=== PATIENT | male | born 1990 | race African-American/Black ===

== ENCOUNTER 2018-11-17 00:43 | Inpatient (IN) | payer OTHER ==
[~2018-11-17] VITALS: Ht 180.3 cm; Wt 96.4 kg
[2018-11-17 01:38] LABS: BASO % 0.3 % (0.0-1.0); EOS # 0.1 10^3/uL (0.0-0.50); EOS % 2.4 % (0.0-3.0); HEMATOCRIT 46.9 % (42.0-52.0); HEMOGLOBIN 15.1 g/dl (13.5-17.5); LYMPH # 2.9 10^3/uL (1.5-6.5); LYMPH % 49.4 % (24.0-44.0); MEAN CORPUSCULAR HEMOGLOBIN 28.1 pg (27.0-33.0); MEAN CORPUSCULAR HGB CONC 32.2 g/dl (32.0-36.5); MEAN CORPUSCULAR VOLUME 87.2 fl (80.0-96.0); MONO # 0.5 10^3/uL (0.0-0.8); MONO % 8.3 % (0.0-5.0); NEUTROPHILS # 2.3 10^3/uL (1.8-7.7); NEUTROPHILS % 39.4 % (36.0-66.0); PLATELET COUNT, AUTOMATED 252 10^3/uL (150-450); RED BLOOD COUNT 5.38 10^6/uL (4.30-6.10); WHITE BLOOD COUNT 5.9 10^3/uL (4.0-10.0)
[2018-11-17] MEDS ORDERED: NS 1,000 ML IV ONE (01:45)
[2018-11-17 02:23] LABS: ACETAMINOPHEN LEVEL < 2.0 UG/ML (10.0-30.0); ALBUMIN 4.6 GM/DL (3.2-5.2); ALT/SGPT 78 U/L (12-78); BILIRUBIN,DIRECT < 0.1 MG/DL (0.0-0.2); BILIRUBIN,TOTAL 0.2 MG/DL (0.2-1.0); BLOOD UREA NITROGEN 13 MG/DL (7-18); CALCIUM LEVEL 9.3 MG/DL (8.5-10.1); CARBON DIOXIDE LEVEL 30 MEQ/L (21-32); CHLORIDE LEVEL 105 MEQ/L (98-107); CPK CREATINE PHOSPHOKINASE 223 U/L (39-308); ETHYL ALCOHOL (ETHANOL) 0.005 % (0.000-0.010); GLOMERULAR FILTRATION RATE > 60.0 (>60); GLUCOSE, FASTING 102 MG/DL (70-100); POTASSIUM SERUM 4.2 MEQ/L (3.5-5.1); SALICYLATE LEVEL < 1.7 MG/DL (5.0-30.0); SODIUM LEVEL 141 MEQ/L (136-145); TOTAL PROTEIN 7.8 GM/DL (6.4-8.2)
[2018-11-17 03:02] LABS: AMPHETAMINES LEVEL URINE NEGATIVE (NEGATIVE); BARBITURATES URINE NEGATIVE (NEGATIVE); BENZODIAZEPINES URINE NEGATIVE (NEGATIVE); CANNABINOIDS URINE NEGATIVE (NEGATIVE); COCAINE METABOLITE URINE NEGATIVE (NEGATIVE); METHADONE URINE NEGATIVE (NEGATIVE); OPIATES URINE NEGATIVE (NEGATIVE); PHENCYCLIDINE URINE NEGATIVE (NEGATIVE)
--- NOTE | 2018-11-17 07:20 | ECGEPIP ---
[facility] - ED Test Date: 2018-11-17 Pat Name: MISTI GIFFORD Department: Room: - Gender: Male Rehab Trainer: PK : 1990 Requested By: ALEIDA Hook Order Number: [id number] Reading MD: Lonny Simmons Measurements Intervals [place] Rate: 84 P: 30 [place]: 179 QRS: 2 QRSD: 95 T: 5 QT: 359 QTc: 425 Interpretive Statements SINUS RHYTHM VOLTAGE CRITERIA FOR [facility] NONSPECIFIC T-WAVE ABNORMALITY NO PRIORS FOR COMPARISON Electronically Signed on 11-17-2018 7:19:55 EDT by Lonny Simmons
[2018-11-17] MEDS ORDERED: BENA25CA4 PO (08:00)
[2018-11-17] MEDS ORDERED: MOM 30ML SUSPENSION UDC PO PRN (14:15)
[2018-11-17] MEDS ORDERED: ACETAMINOPHEN TAB 650MG DOSE (2X325MG) PO PRN (14:15)
[2018-11-17] MEDS ORDERED: traZODone 100 MG TAB PO PRN (14:15)
[2018-11-17] MEDS ORDERED: MAALOX 30 ML SUSP *UDC PO PRN (14:15)
[2018-11-17 14:48] VITALS: BP 138/83
[2018-11-17] MEDS: diphenhydrAMINE 50 MG CAP PO SCH (21:00)
[2018-11-18 06:00] VITALS: BP 137/66
[2018-11-18 18:03] VITALS: BP 135/61
[2018-11-18] MEDS: diphenhydrAMINE 50 MG CAP PO SCH (20:13)
[2018-11-18] MEDS ORDERED: traZODone 100 MG TAB PO SCH (21:00)
[2018-11-18] MEDS: LORazepam 1 MG TAB PO PRN (21:51)
[2018-11-19 06:52] VITALS: BP 109/61
--- NOTE | 2018-11-19 09:15 | MHHPE ---
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 The patient just got this Spring. His is living in [place] and was supposed to be moving here yesterday when her plans fell through. The patient's called EMS for a possible suicide attempt by the patient. The patient has a history of chronic insomnia since childhood. He takes high amounts of over the counter Benadryl, at least 10 to 20, and at times up to 30, every night. The patient claims that this is a normal dose for him. The mother of his 5-year-old daughter contacted the patient's concerned about a posting on social media that was interpreted as being possibly suicidal in nature. The patient minimizes this. [place] He was missing his daughter whom he had not seen in over a year. The patient has stopped seeing the counselor. He had been referred for assessment for a sleep disorder, but stopped in frustration as he never got a sleep study. The patient does admit to feeling stressed by the fact that his is not joining him. He is vague about the details on why she is not moving here to [place]. The patient was adopted as a baby. His adopted parents are upset with him for marrying a white woman. Subsequently, he has had no contact with his adoptive parents. This is also a major loss for him. The patient states his appetite is fine. Weight has been stable. Concentration is fine. Level of energy is good. He never complains of a drug hangover from the Benadryl. His only side effect is that of a dry mouth. He feels hopeful about the future. The patient has no other complaints. PAST PSYCHIATRIC HISTORY: The patient did see a counselor [place] mentioned [place], but did not receive any medication or psychiatric assessment apparently by a psychiatrist. MEDICAL HISTORY: The patient states he is healthy. ALLERGIES: The patient denies. LEGAL HISTORY: None noted. CHEMICAL DEPENDENCY: Patient denies. SOCIAL HISTORY: Patient born in [place] and raised in [place]. He has a high school degree. 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 The patient has a 5-year-old daughter by a previous relationship. The daughter and her mother live in [place]. The patient got back in July. The patient was adopted as a baby and raised by his adoptive parents. Relationship with them was good up until the point where he a white woman as mentioned above. The patient has met his biological family. They are very accepting. He is very close to them, especially his biological father. The patient has a number of half brothers and sisters. FAMILY PSYCHIATRIC HISTORY: None noted. MENTAL STATUS EXAMINATION: The patient is alert, oriented and cooperative. Grooming and hygiene is good. The patient is disgruntled about being here on the mental health unit. He denies feeling depressed or suicidal. Anxiety is minimal. No signs of psychosis. He is not hearing voices. No paranoia or thought disorder. Insight and judgment appear reasonably good. No signs of impulsivity or dangerousness. Memory function is intact. No signs of cognitive deficits. ASSESSMENT: The patient was given trazodone 100 mg at bedtime last night with good effect. The patient states his sleep was "wonderful". The patient is advised that the trazodone is a much more medically appropriate treatment for insomnia than the Benadryl. DIAGNOSIS: Depressive disorder unspecified. LENGTH OF STAY: 3-5 days. PLAN: Continue use of trazodone. The patient to be monitored over the weekend. The patient encouraged to be involved in hospital milieu. Staff to contact on Tuesday and to work on discharge plans. The patient will followup with outpatient mental health at [place] upon discharge.
[2018-11-19 18:44] VITALS: BP 105/56
[2018-11-19] MEDS ORDERED: traZODone 50 MG TAB PO SCH (21:00)
[2018-11-19] MEDS: diphenhydrAMINE 50 MG CAP PO SCH (21:00)
[2018-11-19] MEDS: LORazepam 1 MG TAB PO PRN (21:34)
[2018-11-20 06:42] VITALS: BP 117/53
[2018-11-20] MEDS ORDERED: TRAZ1TAB14 PO (08:06)
--- NOTE | 2018-11-20 10:49 | HPE ---
DATE OF ADMISSION: 11/17/2018 HISTORY OF PRESENT ILLNESS (HPI): Please refer to the psychiatric history and evaluation for further details on this admission. This examination and history is intended for medical issues, which may need treatment, followup or consultation on this 28-year-old male. ALLERGIES: NO KNOWN ALLERGIES. PRIMARY CARE PROVIDER: [facility] [place]. 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 Ethyl alcohol (EtOH) every few months. Smoking history: He chews one can of chew a week. Recreational drug use: None. PAST MEDICAL HISTORY: Insomnia. PAST SURGICAL HISTORY: PE tubes age 2. HOME MEDICATIONS: - over the counter Benadryl FAMILY HISTORY: Adopted. LABORATORY STUDIES: WBC 5.9, hemoglobin 15.1, hematocrit 46.9, platelets 252. Electrolytes were normal. BUN 13, creatinine 1.10. Urine for toxicology was negative. Fasting glucose was 111. 11-system review was done. It was unremarkable and patient had no complaints. PHYSICAL EXAM: 28-year-old, cooperative male, in no acute distress. Height 71 inches. Weight 96.4 kg. Body mass index (BMI) 29.6. B p 118/60, pulse 88, respirations 14, temperature 98. Patient is alert and oriented times three. Pupils equal and react to light. Extraocular movements (EOMS) intact. Cornea and sclerae clear. Conjunctiva is normal. No facial asymmetry. Pharynx, tongue, and gums pink and moist. Tongue is midline. Neck is supple, without lymphadenopathy. No thyromegaly. No goiter. Carotids 2+ without bruits. Chest: Clear to auscultation, without wheeze or retraction. Heart is regular. Abdomen: Benign. Bowel sounds positive. Genitourinary ()/rectal not done. Extremities: Show equal strength, full range of motion. No cyanosis, clubbing, or edema. Peripheral pulse equal and palpable bilaterally. Skin is warm and dry. Cranial nerves II-XII grossly intact. IMPRESSION/PLAN: 1. Psychiatric: Plan per psychiatry. 2. No acute medical issues.
--- NOTE | 2018-11-20 21:18 | MHIPN ---
DATE: 11/19/2018 VITAL SIGNS: Temperature 99.1, pulse 68, respirations 12, blood pressure 109/61. CURRENT MEDICATION: Trazodone 50 mg at bedtime (hs) HISTORY OF PRESENT ILLNESS: The patient is still upset about being hospitalized. He claims there was a misunderstanding. Denies that he was ever suicidal. He minimized his any depressive symptoms. He still has problems with insomnia. However, last night he had sleep latency of 4 hours despite being on the trazodone. He feels comfortable with having the dosage increased tonight. The patient hopes to be discharged soon. The patient is isolating, spends a lot of time in bed. He is not interacting with staff or his peers. He has had no outburst. Behavioral control is reasonably good. The patient [place]. He claims that she also agrees that he does not need to be hospitalized. Staff will reach out to speak to his tomorrow. The patient is to meet with automatic data processing planner tomorrow, who will also consult with chain of command. MENTAL STATUS EXAMINATION: The patient is alert and oriented and reasonably cooperative. Grooming and hygiene remains good. The patient is still irritable about being hospitalized. He denies being depressed. He is not homicidal or suicidal. The patient is not psychotic. Insight and judgment appear reasonably good. No signs of dangerousness. Memory functions appear intact. ASSESSMENT: The patient appears to have developed some tolerance to trazodone. No signs of dangerousness here on the unit. DIAGNOSIS: Depressive disorder unspecified with insomnia. PLAN: Increase dose of trazodone. Encourage hospital Milieu involvement. regional planner to meet with tomorrow.
--- NOTE | 2018-11-21 18:02 | MHDS ---
DATE OF ADMISSION: 11/17/2018 DATE OF DISCHARGE: 11/20/2018 VITAL SIGNS: Temperature 98.0, pulse 88, respirations 12, blood pressure 117/53. LABORATORY DATA: CBC and differential within normal limits. Chemistry survey within normal limits except for a low anion gap at 6. Toxicology screen was negative. DISCHARGE DIAGNOSIS: Depressive disorder, unspecified. DISCHARGE MEDICATION: Trazodone 150 mg at bedtime. CHIEF COMPLAINT: Depression with possible suicide attempt. 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 The patient's who lives out in [place] contacted emergency medical services (EMS) concerned about her 's safety. The patient's ex-girlfriend had contacted the regarding possible suicidal ideation on social media. The patient had been taking huge amounts of Benadryl up to 30 per day at bedtime to help with sleep. He has had a chronic insomnia since childhood. He claims to have been taking this high dose of Benadryl for years. He denies having any side effects from it. The patient does have some situational stressors. His was supposed to move out this past week but her plans got changed. He is stressed out by his chronic insomnia. The patient does have a history of depressive symptoms being treated at [facility] earlier in the year. The patient was referred to a sleep disorder clinic but never actually got an overnight sleep evaluation. PROGRESS ON THE UNIT: The patient minimized any depressive symptoms while on the unit. He did appear to require the use of any antidepressants. He did complain of a significant sleeping disorder, however. He was started on trazodone 50 mg at bedtime and this was quickly increased to 150 mg at bedtime with good effect. He tolerated it well. He had no side effects. He denied suicidality throughout his brief admission. The patient was resistant to the social milieu, spending most of his time in bed over the weekend. He did speak with his , however, on the telephone. The patient's was contacted by staff. The had no concerns about her 's safety and felt comfortable with discharge plans. The patient was agreeable to discharge with followup at [facility]. His appetite was fine during admission. No sleep symptoms. MENTAL STATUS EXAMINATION AT TIME OF DISCHARGE: Mood and affect appeared good. Anxiety was minimal. No signs of dysphoria or depression. He was no suicidal. Grooming and hygiene were quite good. No signs of impulsivity or dangerousness. The patient was not psychotic. ASSESSMENT: The patient apparently had a number of situational stressors as well as chronic insomnia which led to his brief hospitalization. The patient did well on a trial of trazodone for his insomnia. The patient may benefit from a sleep disorder workup when he returns to [place]. PLAN: The patient is safe for discharge with outpatient followup at [facility].
== END 2018-11-20 11:30 | disposition home or self-care (01) | DRG 881 ==
LOC: M ED 00:43 → M ED INP 14:03 → M PSY 14:30
PROVIDERS: ADMIT Psychiatry & Neurology Psychiatry; ATTEND Psychiatry & Neurology Psychiatry
DX: F32.9 Major depressive disorder, single episode, unspecified (principal); G47.00 Insomnia, unspecified; F17.220 Nicotine dependence, chewing tobacco, uncomplicated